=== PATIENT | female | born 1985 | race Caucasian/White ===

== ENCOUNTER 2017-06-29 15:54 | Emergency (ER) | payer OTHER ==
[~2017-06-29] VITALS: Ht 160 cm; Wt 121.1 kg
[~2017-06-29 15:54] MED LIST: HYDR25CA1 PO; QUET300T1 PO; SERT100T PO
[2017-06-29 16:03] VITALS: BP 132/69
--- NOTE | 2017-06-29 19:10 | NUR ---
PATIENT AMBULATED TO ER OF1.
--- NOTE | 2017-06-29 19:12 | NUR ---
PATIENT IS A 31 Y/O FEMALE WHO PRESENTS TO THE ED C/O RIGHT EYE PAIN. PT STATES, "THE NURSE AT [facility] TOLD ME TO PUT COLD PACKS AND IT DIDN'T WORK." PT REPORTS 8/10 SHARP RIGHT EYE PAIN THAT DOES NOT RADIATE. PT DENIES CP, SOB, N/V/D. NOTED PUFFINESS TO RIGHT EYE. PT UNABLE TO OPEN EYE. PT AAOX4, RR EVEN/UNLABORED. PT REPOSITIONED FOR COMFORT, BED IN LOWEST POSITION. ER MD DR. FERRER NOTIFIED. WILL CONTINUE TO MONITOR.
[2017-06-29] MEDS ORDERED: FLUORESCEIN OPTH STRIP 0.6 MG ONE (19:47)
[2017-06-29] MEDS ORDERED: TETRACAINE HCL/PF 0.5% OPTH 4 ML BTL ONE (19:47)
[2017-06-29 20:40] VITALS: BP 129/72
--- NOTE | 2017-06-29 20:40 | NUR ---
Patient discharged with v/s stable. Written and verbal after care instructions given and explained. Patient alert, oriented and verbalized understanding of instructions. Ambulatory with steady gait. All questions addressed prior to discharge. ID band removed. Patient advised to follow up with PMD. Rx of IBUPROFEN AND CIPROFLOXACIN given. Patient educated on indication of medication including possible reaction and side effects. Opportunity to ask questions provided and answered.
== END 2017-06-29 20:40 | disposition home or self-care (01) ==
LOC: MED 15:54
DX: H10.89 Other conjunctivitis (principal); R03.0 Elevated blood-pressure reading, without diagnosis of hypertension; F41.9 Anxiety disorder, unspecified; F32.9 Major depressive disorder, single episode, unspecified; Z79.899 Other long term (current) drug therapy
CPT/HCPCS: 99283

== ENCOUNTER 2018-11-11 17:52 | Emergency (ER) | payer OTHER ==
[~2018-11-11] VITALS: Ht 165.1 cm; Wt 127.0 kg
[2018-11-11 18:15] VITALS: BP 114/92
--- NOTE | 2018-11-11 18:47 | NUR ---
PT AMBULATED TO ER BED 07
--- NOTE | 2018-11-11 18:48 | NUR ---
PT WITH HX OF DEPRESSION, ANXIETY, AND MIGRAINES C/O 02/04 MIGRAINE, PHOTOSENSITIVITY, NAUSEA X SUDDEN ONSET TODAY. NO VOMITING. ALSO C/O 01/04 CONSTANT CHEST PAIN. CHEST PAIN STARTED AFTER EATING AT [facility] TODAY. CP WORSE WITH LYING DOWN. NO RELIEVING FACTORS. AOX4. BED LOCKED & LOW, SIDERAILS UP X1. ERMD TO EVAL PATIENT.
--- NOTE | 2018-11-11 19:08 | NUR ---
RECEIVED REPORT FROM AUGUSTINA LOO. ASSUMED CARE AT THIS TIME.
--- NOTE | 2018-11-11 19:20 | NUR ---
REPORT GIVEN TO AUGUSTINA BAHENA.
[2018-11-11] MEDS ORDERED: ONDANSETRON 4 MG/2 ML VIAL IVP ONE (19:35)
[2018-11-11] MEDS ORDERED: NACL 0.9% 1,000 ML IV ONE (19:35)
[2018-11-11] MEDS ORDERED: KETOROLAC 30 MG/ML VIAL IVP ONE (19:35)
--- NOTE | 2018-11-11 19:42 | NUR ---
EKG PERFORMED AT BEDSIDE
[2018-11-11 19:52] LABS: BASOPHILS # (AUTO) 0.1 K/uL (0.00-0.22); BASOPHILS % (AUTO) 0.8 % (0.0-2.0); EOSINOPHILS # (AUTO) 0.4 K/uL (0-0.4); EOSINOPHILS % (AUTO) 3.5 % (0.0-4.0); HEMATOCRIT 38.2 % (36-48); HEMOGLOBIN 12.6 g/dL (12.0-16.0); LYMPHOCYTES # (AUTO) 3.6 K/uL (2.5-16.5); LYMPHOCYTES % (AUTO) 29.1 % (20.5-51.1); MEAN CORPUSCULAR HEMOGLOBIN 29 pg (27-31); MEAN CORPUSCULAR HGB CONC 33 g/dL (33-37); MEAN CORPUSCULAR VOLUME 87.2 fL (80-94); MONOCYTES # (AUTO) 0.4 K/uL (0.8-1.0); MONOCYTES % (AUTO) 3.2 % (1.7-9.3); NEUTROPHILS # (AUTO) 7.8 K/uL (1.8-7.7); NEUTROPHILS % (AUTO) 63.4 % (42.2-75.2); PLATELET COUNT (AUTO) 303 K/uL (140-450); RED BLOOD CELL COUNT(AUTO) 4.39 MIL/uL (4.20-5.40); RED CELL DISTRIBUTION WIDTH 14.2 % (11.6-13.7); WHITE BLOOD COUNT (AUTO) 12.2 K/uL (4.8-10.8)
[2018-11-11 20:03] LABS: ANION GAP 10.4 (8-16); CARBON DIOXIDE 29.6 mmol/L (21-32); CREATININE 0.8 mg/dL (0.6-1.3)
[2018-11-11 20:09] LABS: ALBUMIN 3.4 g/dL (3.4-5.0); TOTAL BILIRUBIN 0.2 mg/dL (0.0-1.0)
--- NOTE | 2018-11-11 20:45 | NUR ---
PT AWAKE. LIGHTS TURNED OFF FOR PT COMFORT. VSS AT TIME. WILL CONTINUE TO MONITOR.
[2018-11-11 21:21] LABS: APPEARANCE,URINE HAZY (CLEAR); BILIRUBIN,URINE NEGATIVE (NEGATIVE); BLOOD, URINE NEGATIVE (NEGATIVE); COLOR,URINE YELLOW (YELLOW); LEUKOCYTE ESTERASE ,URINE NEGATIVE (NEGATIVE); NITRITE, URINE NEGATIVE (NEGATIVE); UGLUCOSE NEGATIVE (NEGATIVE)
[2018-11-11 21:30] VITALS: BP 118/89
--- NOTE | 2018-11-11 21:30 | NUR ---
Patient discharged with v/s stable. Written and verbal after care instructions given and explained. Patient verbalized understanding. Ambulatory with steady gait. All questions addressed prior to discharge. Advised to follow up with PMD.
== END 2018-11-11 21:30 | disposition home or self-care (01) ==
LOC: MED 17:52
DX: F41.9 Anxiety disorder, unspecified (principal); K21.9 Gastro-esophageal reflux disease without esophagitis; F32.9 Major depressive disorder, single episode, unspecified; G43.909 Migraine, unspecified, not intractable, without status migrainosus; Z79.899 Other long term (current) drug therapy; Z98.51 Tubal ligation status
CPT/HCPCS: 36415; 80053; 81003; 81025; 84484; 85025; 93005; 96361; 96374; 96375; 99284; J1885; J2405; J7030